=== PATIENT | female | born 1990 | race Caucasian/White ===

== ENCOUNTER → 2024-04-26 11:57 | Outpatient (REF) | payer OTHER, SELFPAY | LOC: HWEVLT 11:57 | PROVIDERS: ATTENDING PHYSICIAN Radiology Diagnostic Radiology | DX: I83.893 Varicose veins of bilateral lower extremities with other complications (principal) | CPT/HCPCS: 93970 ==

== ENCOUNTER → 2024-07-11 13:27 | Outpatient (REF) | payer OTHER, SELFPAY | LOC: HWEVLT 13:27 | PROVIDERS: ATTENDING PHYSICIAN Radiology Diagnostic Radiology | DX: I83.892 Varicose veins of left lower extremity with other complications (principal) | CPT/HCPCS: 36478; C1769 ==

== ENCOUNTER → 2024-07-18 09:43 | Outpatient (REF) | payer OTHER, SELFPAY | LOC: HWEVLT 09:43 | PROVIDERS: ATTENDING PHYSICIAN Radiology Diagnostic Radiology | DX: I83.891 Varicose veins of right lower extremity with other complications (principal) | CPT/HCPCS: 36478; 93971; C1769 ==

== ENCOUNTER → 2024-07-31 12:22 | Outpatient (REF) | payer OTHER, SELFPAY | LOC: HWEVLT 12:22 | PROVIDERS: ATTENDING PHYSICIAN Radiology Vascular & Interventional Radiology | DX: I83.892 Varicose veins of left lower extremity with other complications (principal) | CPT/HCPCS: 93971 ==